=== PATIENT | female | born 1945 | race Caucasian/White ===

== ENCOUNTER 2017-09-28 11:57 | Emergency (ER) | payer OTHER, BC ==
[~2017-09-28] VITALS: Ht 170.2 cm; Wt 100.0 kg
[~2017-09-28 11:57] MED LIST: COZAAR50 MG PO; Cipro PO; Ecotrin PO; FOLIC ACID0.4 MG PO; MEDROL DOSEPAK4 MG PO; PERCOCET 5/31 TABLET PO; PREVACID15 MG PO; PREVACID30 MG PO
[2017-09-28] MEDS ORDERED: MOTRIN800 MG PO (14:03)
[2017-09-28] MEDS ORDERED: ULTRAM50 MG PO (14:03)
[2017-09-28 14:45] VITALS: BP 128/94
== END 2017-09-28 14:48 | disposition home or self-care (01) ==
LOC: EME 11:57
PROC: 2W3QX1Z Immobilization of Right Lower Leg using Splint (ICD-10-PCS; principal; 2017-09-28)
DX: S92.351A Displaced fracture of fifth metatarsal bone, right foot, initial encounter for closed fracture (principal); M25.571 Pain in right ankle and joints of right foot; M25.471 Effusion, right ankle; X50.1XXA Overexertion from prolonged static or awkward postures, initial encounter; W18.30XA Fall on same level, unspecified, initial encounter; I10 Essential (primary) hypertension; Z79.82 Long term (current) use of aspirin
CPT/HCPCS: 73610; 73630; 99281; 99283